=== PATIENT | male | born 1975 | race Caucasian/White ===

== ENCOUNTER 2017-07-30 13:57 | Emergency (ER) | payer OTHER ==
[~2017-07-30] VITALS: Ht 180.3 cm; Wt 75.0 kg
[~2017-07-30 13:57] MED LIST: CYCL-36 PO; DICL75 PO; PRED20 PO
[2017-07-30 13:58] VITALS: BP 136/77; PULSE 111; RESP 14; TEMP 100.4; O2SAT 98
[2017-07-30] MEDS ORDERED: OSEL75 PO (14:33)
--- NOTE | 2017-07-30 14:42 | PD ---
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 Patient states his fevers as high as 101.9. Patient feels worse today than he did yesterday. He's been exposed to many people with the flu. He denies nausea, vomiting, or diarrhea. He has no known drug allergies PFSH Past Medical History Diminished Hearing: No Social History Alcohol Use: Yes (DAILY) Tobacco Use: Yes Substance Use: No Allergies-Medications (Allergen,Severity, Reaction): Coded Allergies: No Known Allergies (Unverified Adverse Reaction, Unknown, 07/30/17) Reported Meds & Prescriptions Reported Meds & Active Scripts Active No Active Prescriptions or Reported Medications Review of Systems Except as stated in HPI: all other systems reviewed are Neg General / Constitutional: Positive: Fever, Chills Eyes: No: Visual changes HENT: Positive: Headaches, Sore Throat, Rhinitis, Rhinorrhea, Congestion, No: Vertigo, Lightheadedness, Nosebleed, Neck Stiffness, Neck Pain, Dental Difficulties, Earache Cardiovascular: No: Chest Pain or Discomfort Respiratory: Positive: Cough, No: Shortness of Breath, Wheezing Gastrointestinal: No: Nausea, Vomiting, Diarrhea, Abdominal Pain Genitourinary: No: Dysuria Musculoskeletal: No: Pain Skin: No Rash Neurologic: No: Weakness Psychiatric: No: Depression Endocrine: No: Polydipsia Hematologic/Lymphatic: No: Easy Bruising Physical Exam Narrative GENERAL: Patient appears ill but not septic. SKIN: Warm. Decreased pallor. Mild diaphoresis, but normal turgor. HEAD: Atraumatic. Normocephalic. EYES: Pupils equal and round. No scleral icterus. No injection or drainage. ENT: No nasal bleeding with moderate clear nasal discharge. Mucous membranes pink and moist. Pharynx is clear. Airway is patent. TMs are clear bilaterally. NECK: Trachea midline. Supple nontender without significant lymphadenopathy. CARDIOVASCULAR: Regular rate and rhythm. RESPIRATORY: No accessory muscle use. Clear to auscultation. Breath sounds equal bilaterally. GASTROINTESTINAL: Abdomen soft, non-tender, nondistended. Hepatic and splenic margins not palpable. MUSCULOSKELETAL: Extremities without clubbing, cyanosis, or edema. No obvious deformities. NEUROLOGICAL: Awake and alert. No obvious cranial nerve deficits. Motor grossly within normal limits. Five out of 5 muscle strength in the arms and legs. Normal speech. PSYCHIATRIC: Appropriate mood and affect; insight and judgment normal. Data Data Last Documented VS Vital Signs Date Time Temp Pulse Resp B/P (MAP) Pulse Ox O2 Delivery O2 Flow Rate FiO2 07/30/17 13:58 100.4 111 14 136/77 (96) 98 MDM Medical Decision Making Medical Screen Exam Complete: Yes Emergency Medical Condition: Yes Differential Diagnosis Upper respiratory infection. Febrile illness. Influenza. Narrative Course Patient is presumed to have influenza. Patient treated with Tamiflu 75 mg twice a day 5 days. Patient is to continue ibuprofen, Tylenol, soup, and cough medicine of choice as needed. Work note is given stating no work until fever free for 24 hours. Patient follow up if symptoms worsen as needed. Diagnosis Primary Impression: Influenza Referrals: Primary Care Physician Patient Instructions: General Instructions, H1N1 Influenza in Children (GEN) Departure Forms: Work Release Special Instructions: Patient is presumed to have influenza. Patient should remain home until fever free 24 hours without any Tylenol or ibuprofen. Additional Instructions: Patient is presumed to have influenza. Patient treated with Tamiflu 75 mg twice a day 5 days. Patient is to continue ibuprofen, Tylenol, soup, and cough medicine of choice as needed. Work note is given stating no work until fever free for 24 hours. Patient follow up if symptoms worsen as needed. Med/Other Pt SpecificInfo: Prescription(s) given Scripts Oseltamivir (Tamiflu) 75 Mg Cap 75 MG PO BID for Mgmt Viral Infection for 5 Days, #10 CAP 0 Refills Prov: Kofi Nixon MD 07/30/17 Disposition: 01 DISCHARGE HOME Condition: Stable Rocky Todd Jul 30, 2017 14:42
== END 2017-07-30 15:07 | disposition home or self-care (01) ==
LOC: NEPK 13:57
DX: J11.1 Influenza due to unidentified influenza virus with other respiratory manifestations (principal); Z20.828 Contact with and (suspected) exposure to other viral communicable diseases; Z72.0 Tobacco use
CPT/HCPCS: 99283